=== PATIENT | male | born 1950 | race Asian ===

== ENCOUNTER 2023-09-27 06:36 | Day surgery (SDC) | payer BC, SELFPAY ==
[2023-09-27] VITALS (8 sets, daily range): BP systolic 110–140; BP diastolic 69–83; BMI 24.5
[2023-09-27] MEDS: LOW STRENGTH ASPIRIN 81 MG PO (07:12)
[2023-09-27] MEDS: NSS 200 ML IV (07:16)
--- NOTE | 2023-09-27 08:40 | ITS.CL.CATH ---
Documentation Specialist - Catheterization
Cardiac Catheterization
Procedure Report:
CARDIAC CATHETERIZATION REPORT
Date of Procedure: 09/27/2023
Referring: Demetrio Key DO
Indication: Anginal type chest discomfort with moderate to severe aortic stenosis by echocardiography
HEMODYNAMIC DATA
AO: 108/67
LV: 140/15
PCWP: 14
PA: 34/16
RV: 34/14
RA: 11
Oximetry: Ao 92%, PA 72%, cardiac output 4.8, cardiac index 2.8
Simultaneous left ventricular and aortic waveforms demonstrate moderate to severe aortic stenosis with mean gradient 28 mmHg and calculated YVON 0.9 cm�
LEFT VENTRICULOGRAPHY: Normal left-ventricular wall motion with EF 67%
CORONARY ANGIOGRAPHY
Dominance: Right
Left Main: Normal
LAD: 30% distal LAD stenosis and a highly angulated segment. The large bifurcating second diagonal branch has 30% ostial stenosis
Circumflex: The large ramus intermedius branch has focal 30% proximal to mid stenosis. There is a 30% mid circumflex stenosis
RCA: Dominant vessel with mild luminal irregularities
Closure Device: None-the procedure was performed via the right radial artery and right femoral vein. The Nahum's test was normal prior to the procedure.
Radiation (mGy): 196
DAP (cm2.Gy): 18.2
Fluoroscopy time: 4.9 minutes
CONCLUSIONS
1: Top normal filling pressures with no pulmonary hypertension
2: Moderate to severe aortic stenosis with mean gradient 28 mmHg and calculated YVON 0.9 cm�
3. Normal left ventricular function with EF 67%
4. Mild CAD
5. We will add metoprolol ER 25 mg daily as his major symptom is mild chest pressure with strenuous activity. Continue serial clinical and echocardiographic follow-up for progression of aortic stenosis and symptoms. If symptoms progress they may
be attributable to aortic stenosis and prompt a recommendation for TAVR
Copy to: Demetrio Key DO, Luis Kelly MD
Lul Vincent MD, [facility], [facility]
[2023-09-27] MEDS: NSS 1000 IV (09:04)
[2023-09-27] MEDS: TOPROL XL 25 MG PO (09:22)
== END 2023-09-27 11:30 | disposition home or self-care (01) ==
LOC: CATH 06:36
PROVIDERS: ATTENDING PHYSICIAN Internal Medicine Cardiovascular Disease; FAMILY PHYSICIAN Family Medicine; OTHER PHYSICIAN Internal Medicine Cardiovascular Disease
DX: I35.0 Nonrheumatic aortic (valve) stenosis (principal); I25.119 Atherosclerotic heart disease of native coronary artery with unspecified angina pectoris; Z79.82 Long term (current) use of aspirin; Z79.899 Other long term (current) drug therapy
CPT/HCPCS: 93460; C1894; Q9967

== ENCOUNTER → 2023-11-13 09:28 | Outpatient (REF) | payer BC, SELFPAY | LOC: RAD 09:28 | PROVIDERS: ATTENDING PHYSICIAN Nurse Practitioner Adult Health; FAMILY PHYSICIAN Family Medicine | DX: I35.0 Nonrheumatic aortic (valve) stenosis (principal) | CPT/HCPCS: 74174; 75572; Q9967 ==

== ENCOUNTER 2024-01-02 05:54 | Inpatient (IN) | payer BC, MEDICARE, SELFPAY ==
[2023-12-25 08:29] VITALS: BMI 23.9
[2023-12-25 08:58] LABS: % Basophils 0.5 % (0-2); % Eosinophils 2.6 % (0-6); % Immature Granulocytes 0.7 % (0-0.5); % Lymphocytes 32.3 % (20.5-51.1); % Neutrophils 53.9 % (42.2-75.2); Absolute Eosinophils 0.1 10^3/uL (0-0.7); Absolute Lymphocytes 1.4 10^3/uL (1.2-3.4); Absolute Monocytes 0.4 10^3/uL (0.1-0.6); Absolute Neutrophils 2.3 10^3/uL (1.4-6.5); Hematocrit 46.7 % (39.0-52.0); Hemoglobin 15.7 g/dL (13.0-18.0); Mean Corp Hgb Conc. 33.6 g/dL (33.0-37.0); Mean Corpuscular Hgb 30.7 pg (27.0-31.0); Mean Corpuscular Volume 91.2 fL (80.0-94.0); Mean Platelet Volume 10.5 fL (7.4-10.4); Nucleated Red Blood Cells % 0 % (-); Platelet Count 198 10^3/uL (130-400); Red Blood Cell Count 5.12 10^6/uL (4.70-6.10); Red Cell Dist. Width 12.6 % (11.5-14.5); White Blood Cell Count 4.3 10^3/uL (4.8-10.8)
[2023-12-25 09:02] LABS: Urine Albumin Negative (Neg - Trace); Urine Bilirubin Negative (Negative); Urine Character Clear (Clear); Urine Color Yellow; Urine Glucose Negative (Negative); Urine Ketone Negative (Negative); Urine Leukocyte Negative (Negative); Urine Nitrite Negative (Negative); Urine Occult Blood Negative (Negative); Urine Urobilinogen Negative (Neg - 1+)
[2023-12-25 09:34] LABS: Glycohemoglobin (HgbA1c) 5.7 % (4.0-5.6)
[2023-12-25 09:36] LABS: INR 0.96; PT 12.8 Sec (11.4-14.6)
[2023-12-25 09:37] LABS: APTT 36.1 Sec (23.4-35.0)
--- NOTE | 2023-12-25 10:24 | CM ---
CM met w/ patient during PATs for planned TAVR, 01/01.
Pt. resides in a private, [address] st. home w/ approx. 1 DINA w/ spouse.
Functionally, patient is indep. at baseline w/ ADLs, mobility without the use of any assisted device.
Pt. still works full-time, drives.
Pt. has PP and uses [facility].
Reviewed pre and post op routines.
Soap, shower instructions, TAVR booklet provided.
Discussed post op restrictions to include lifting and driving restrictions.
Discussed post op MD appointment, Cardiac Rehab and visit from [facility] Transitional Care RN, patient agreeable to this.
Plan for TAVR, 01/01.
Anticipated DC plan is for home w/ [facility] Transitional Care RN.
CM to follow.
[2023-12-25 11:10] LABS: NT-proBNP 87.9 pg/ml
[2023-12-25 11:15] LABS: ALT (SGPT) 40 U/L (0-50); AST (SGOT) 45 U/L (17-59); Albumin 4.6 g/dl (3.5-5.0); Alkaline Phosphatase 55 U/L (38-126); Blood Urea Nitrogen 16 mg/dl (9-20); Calcium 9.6 mg/dl (8.4-10.2); Carbon Dioxide 28 mmol/L (22-30); Chloride 101 mmol/L (98-107); Direct Bilirubin 0.3 mg/dl (0.0-0.4); Estimated Creatinine Clearance 62 ml/min; Glucose 91 mg/dl (70-99); Potassium 4.1 mmol/L (3.5-5.1); Sodium 139 mmol/L (135-145); Total Bilirubin 1.1 mg/dl (0.2-1.3); Total Protein 7.2 g/dl (6.3-8.2); eGFR > 60.00
--- NOTE | 2023-12-25 11:51 | HPS.HSE ---
Family Physician
-
Family Physician: Luis Kelly
Director Corporate Security: Shahid
Chief Complaint
-
Dyspnea on exertion
History of Present Illness
Mr. Khalil is a very pleasant 73-year-old gentleman with moderate to severe aortic stenosis and mild concurrent aortic regurgitation. His highest mean gradient was 28 mmHg calculated YVON of 0.9. His LVEF is hyperdynamic at 67%. His pressure half-time
is 634. His peak velocity is 3.6 m/s. Cardiac catheterization demonstrated only mild CAD.He reports progressive symptom occurring over the last 2 years and becoming lifestyle limiting. He has chest pressure and shortness of breath with any moderate
rate of ambulation and when climbing stairs. He also used to be a avid swimmer, but has had to limit this activity secondary to similar symptoms. He states that it requires approximately 10 minutes of rest for his symptoms to tony. He denies any
presyncope/syncope. He is still works as a chemist enzymes.
Reviewed the risks of TAVR with the patient including bleeding, stroke and PPM. Patient does have a right bundle branch block so may have a slightly higher risk of needing a PPM following his TAVR. Allowed for and answered questions. He is aware he
will receive a call next Sat. to confirm arrival time but for now will plan to arrive at 0530 to the [facility]. He will hold his fish oil starting today and will stay on his aspirin. He will take only his aspirin the morning of his procedure.
Medical History
Past Medical History
Past Medical History: Reports CAD (mild), HTN and Hypercholesterolemia
Past Surgical History: Reports Appendectomy
Social History
Tobacco: Non-smoker
Alcohol: None
Drug: None
Personal:
Living: With Family ()
Employment: Employed ([employer])
Family History
Family History: Not pertinent
Allergies / Home Medications
Allergies reflects when Allergies were last updated in [employer].
Home Medications with original date entered in [employer]
Allergy/Medication List:
NKDA
Medications:
Aspir-81 81 MG Tablet Delayed Release 1 tablet Orally Once a day
Ezetimibe-Simvastatin 10-20 MG Tablet 1 tablet Orally Once a day
Isosorbide Mononitrate ER 30 MG Tablet Extended Release 24 Hour 1 tablet in the morning Orally Once a day
Metoprolol Succinate ER 25 MG Tablet Extended Release 24 Hour 1 tablet Orally Once a day
Multivitamin(Multiple Vitamin) - Tablet 1 tablet Orally Once a day
[place] 3 1000 MG Capsule 1 capsule Orally Three times a day
Vitamin B12 1000 MCG Tablet Extended Release 1 tablet Orally Once a day, Notes: 5,000
Review of Systems
-
History Source: Patient
Constitutional: Denies Fever, Night Sweats or Chills
EENT: Reports No Symptoms
Respiratory: Denies Cough or Trouble Breathing
Cardiac: Reports Chest Pain ('thightness' when he walks briskly) and Other (SHEA); Denies Syncope
Abdomen/GI: Denies Abdominal Pain, Nausea, Vomiting or Diarrhea
: Reports No Symptoms
Musculoskeletal: Reports No Symptoms; Denies Edema
Skin: Reports No Symptoms
Neurological: Reports No Symptoms
Endocrine: Reports No Symptoms
Hematologic/Lymphatic: Reports No Symptoms
Psych: Reports No Symptoms
Physical Exam
Physical Exam
General: Well Developed, Well Nourished, No Apparent Distress and Comfortable
HEENT: NormoCephalic, Moist mucous membranes and PERRLA
Respiratory: Clear and Non Labored Respirations; No Wheezes, Rales, Rhonchi or Crackles
Cardiac: S1/S2, Regular Rhythm, Bradycardia and Murmur (Grade II/)
Breast: Deferred by me
GI: Soft, Non Tender, Non Distended and Normal Bowel Sounds
Rectal: Deferred by Provider
Genito-urinary: Deferred by me
Musculoskeletal: No Clubbing, No Cyanosis and No Edema
Skin: Warm and Dry
Neuro: AO x 3, No Motor Deficits and Nonfocal/grossly intact
Psych: Calm and Intact Judgment/Insight
Laboratory Results
-
12/25/23 08:40
12/25/23 08:40
Laboratory Results
PT 12.8 Sec (11.4-14.6) 12/25/23 08:40
INR 0.96 12/25/23 08:40
APTT 36.1 Sec (23.4-35.0) H 12/25/23 08:40
Total Bilirubin 1.1 mg/dl (0.2-1.3) 12/25/23 08:40
AST 45 U/L (17-59) 12/25/23 08:40
ALT 40 U/L (0-50) 12/25/23 08:40
Alkaline Phosphatase 55 U/L (38-126) 12/25/23 08:40
Data Reviewed
-
Diagnostic Radiology: Report Reviewed by me (chest x-ray- no active disease)
Medical Tests (Nuc Med, Echo, EKG etc): Report Reviewed by me (55bpm, R-BBB- notified EP physicians to be aware if patient would need PPM following TAVR)
Lab Data: Labs Reviewed by me
Impression/Plan
-
IMPRESSION:
Moderate to severe, lifestyle limiting aortic stenosis
PLAN: After discussion and review by the heart team at the SDM meeting, plan is to proceed with TF-TAVR. Continue aspirin daily. Cardiac rehab consult. Post op day #1/#30 echocardiogram.
[2024-01-02] VITALS (28 sets, daily range): BP systolic 102–146; BP diastolic 41–97; BMI 23.4
--- NOTE | 2024-01-02 06:22 | W.CVOR.SURPR ---
CVOR Surgeon Immed Pre Op
-
I have examined this patient prior to performance of the scheduled procedure.
The patient's condition is unchanged from the time of the dictated/written History and
Physical and the patient is able to undergo the scheduled procedure.
--- NOTE | 2024-01-02 06:25 | PTCARENOTE ---
Pt rec'd as new adm for TAVR. clipped and washed with CHG wipes. adm hx obtained and iv site placed. Pt in sinus rhythm
[2024-01-02 08:19] LABS: ACT-LR - POC 290 Seconds (116-155)
[2024-01-02 08:28] LABS: ACT-LR - POC 277 Seconds (116-155)
--- NOTE | 2024-01-02 08:58 | W.IMMPOSTOP ---
Surgical Immed Post Op Note
-
[id number]
STRUCTURAL HEART PROCEDURE NOTE: TAVR
Preoperative Dx:
Cnwtzqty-nn-nepbmi aortic stenosis
HTN/HLD
RBBB
Postoperative Dx:
Same
Acute on chronic combined systolic-diastolic CHF w/ elevated LVEDP @ 30mmHg
CHB requiring pacing
Procedures:
1) R RA access w/ tactile guidance, micropuncture technique, 6Fr sheath placement
2) Placement of pigtail catheter in NCC w/ limited aortography & confirmation of cusp-overlap view
3) L CFV access w/ tactile & fluoroscopic guidance, micropuncture technique, 6Fr sheath placement
4) Placement of temporary RV pacing wire under fluoroscopic guidance, threshold testing
5) R EMBEDDED ENGINEER access w/ tactile & fluoroscopic guidance, micropuncture technique, 6Fr sheath placement
6) Placement of perclose sutures x 2 into R EMBEDDED ENGINEER, 8Fr sheath placement
7) Serial dilation of R ileofemoral system w/ attempted placement of 14Fr COOK sheath
8) Repeat dilation of R ileofemoral system w/ 16Fr dilator w/ successful placement of 14Fr COOK sheath
9) Wire purchase across stenotic AV (AL-1, soft-tip straight, LVEDP assessment, J-wire, pigtail, lunderquist)
10) Fluoroscopic inspection of TAVR valve
11) Attempted placement of TAVR valve/in-line sheath w/ loss of wire purchase across stenotic AV
12) Replacement of 14Fr COOK sheath w/ repeat wire purchase across stenotic AV (AL-1, soft-tip straight, J-wire, pigtail, lunderquist)
13) Placement of TAVR valve/in-line sheath
14) R TF TAVR w/ placement of 29mm EVOLUT FX valve (recapture x 2)
15) Completion aortography
16) Completion TTE (no effusion, trace AI, mean gradient 3mmHg)
17) Position of R RA pigtail catheter into distal abdominal aorta
18) Removal of afdwi-mivmntwx-hhpnmt & in-line sheath w/ R EMBEDDED ENGINEER mgmt w/ perclose sutures x 2; manual pressure
19) Completion R ileofemoral angiography
20) Temporary pacing wire secured in-situ w/ repeat threshold testing of temporary pacing wire given CHB
21) Removal of R RA access w/ mgmt w/ radial band placement
Computer Operations Technician:
Dr. Hayden Vincent
Cardiac Surgeon:
Dr. Lalo Fernandes
Anesthesia:
MAC & local to B/L groins and R wrist
Complications:
New current CHB in setting of pre-existing RBBB - pacer dependent
EP notified intraprocedurally
Implants:
Perclose sutures x 2
Medtronic Evolut FX 29mm valve; SN: [id number]
Cath Data:
Start: 0738hrs, Deploy: 0833hrs, End: 0853hrs
FT: 13.2min, mGy: 427.37, DAP: 43.5818, Contrast: 118
Post-TTE: trace PVL, mean gradient 3mmHg
Condition:
Stable/guarded to recovery
--- NOTE | 2024-01-02 09:18 | ITS.CL.CATH ---
Theology Professor - Catheterization
Cardiac Catheterization
Procedure Report:
TRANSCATHETER AORTIC VALVE REPLACEMENT REPORT
Date: 01/02/2024
Referring physician: Demetrio Key DO
Operators: Lul Vincent MD, Lalo Fernandes MD
Procedure: Conscious sedation was provided by anesthesia. Using a micropuncture technique, a 6 [place] sheath was placed in the right radial artery. A pigtail catheter was advanced the noncoronary cusp and an appropriate cusp overlap angle was
obtained. 6F left femoral venous sheath was placed. A transvenous pacemaker was placed into the RV apex with excellent thresholds. Access was then obtained in the RFA using the micropuncture technique. Injection into the RFA sheath was performed
to confirm a common femoral artery puncture site. Heparin 3000 units was administered. At this point, two Perclose sutures were preset using the preclose technique. We then placed an 8 [place]ij[place] sheath. A 14 Fijian sheath was exchanged into the RFA
follow use of a 12 Fijian dilator .Heparin 3000 units was administered. The valve was crossed with an AL 1 diagnostic catheter and a straight wire. LVEDP was elevated at 30 A double curved Lunderquist wire was advanced into the LV apex over a
pigtail catheter. The 14 F sheath was removed and exchanged for a 29mm Medtronic Evolute pro valve with in-line sheath. The inline sheath did not want to advance more than several millimeters into the groin and we carefully removed it and put the
14 Fijian sheath back in. Wire position in the left ventricle was lost and we repeated the procedure to regain access to the LV apex. Following dilatation with 16 F and 18 Fijian dilators, the inline sheath passed without difficulty into the
aorta. The valve was carefully advanced around the aortic arch and across the valve. [place] positioning required recapture x 2 and on the third placement we achieved an ideal valve position., The valve was very slowly deployed with ventricular
pacing at 120-140 per minute. The result was evaluated with both aortography and echocardiography which demonstrated an excellent result. There was trivial aortic insufficiency and a mean gradient of 3 mmHg. The patient developed complete heart
block following valve deployment which was not a surprise given his pre-existing right bundle branch block (40% risk of needing PPM post TAVR). The valve deployment system was removed and hemostasis achieved with the 2 Perclose sutures with a
15-minute manual hold to ensure hemostasis. Angiography of the right iliofemoral system was accomplished and showed no evidence of significant dissection or perforation with good runoff below the femoral bifurcation. The right radial sheath was
removed and an R band placed. The temporary pacemaker was secured in position and thresholds were rechecked. He will likely require permanent pacemaker within the next 24 hours
Radiation
Dose (mGy): 427
DAP (cm2.Gy): 43.5
Fluoroscopy time: 13.2 minutes
Conclusion: Successful placement of 29mm CoreValve Evolute Pro using a right percutaneous transfemoral approach with no acute complications
Lul Vincent M.D.
Copy : Demetrio Key DO, Luis Kelly MD
--- NOTE | 2024-01-02 09:30 | PTCARENOTE ---
Patient arrived to [facility] recovery at 0920. CTPA at bedside to assess temporary pacer. Patient currently not dependent on pacer. Pacer setting adjusted and basline EKG done. HR [address] Vincent at bedside and Dr. Khan. Pacer rate turned
down to 40. MA 15.
--- NOTE | 2024-01-02 09:37 | W.PN.UPDATE ---
Update Note
Progress Note Update
Reviewed Mr. Khalil with the heart team in the preTAVR SDM and confirmed a 29mm Evolut via right transfemoral access. Mr. Khalil will resume aspirin post TAVR. LVEDP 30mmHg. #29mm Evolut (serial# [id number]) successfully deployed via right transfemoral
access. Post implant MG 3mmHg.
--- NOTE | 2024-01-02 11:56 | CM ---
Chart reviewed. Patient is in the OR today. Patient is independent of ADLS, lives with his in a 2 STH, 1 DINA, 0 DME. Plan is for the patient to return home. CM to follow
[2024-01-02] MEDS: ANCEF 10 IV (12:31)
[2024-01-02] MEDS: ANCEF IV (12:52)
[2024-01-02] MEDS: TOPROL XL PO (15:17)
[2024-01-02] MEDS: ANCEF 5 IV (16:27)
--- NOTE | 2024-01-02 16:55 | W.PN.UPDATE ---
Update Note
Progress Note Update
Remains SR 70s, no further pacing requirements. [place] femoral transvenous pacing wire removed per consensus of Drs. Fernandes/Sal (CPT# 85141). Venous sheath removed without difficulty and hemostasis achieved with manual pressure x 15 minutes.
Patient to remain on bedrest x 4 hours s/p sheath removal.
--- NOTE | 2024-01-02 18:26 | PTCARENOTE ---
Pt received post TAVR at 1100. Pt awake, alert and oriented but drowsy. Right groin site dry and intact. Left groin site dry and intact with temp pacer wire and sheath intact. Pt denies any pain or discomfort. Pt received in SR with no pacer
activity noted on the monitor. Pacer wire and sheath removed at [address] NURSE WOUND. Pt remains on room air, sat 98%. Bedrest to be maintained until 2039.
[2024-01-02] MEDS: IMDUR (EXTENDED RELEASE) 30 MG PO (21:19)
[2024-01-02] MEDS: B COMPLEX w/VITAMIN C 1 CAPLET PO (21:19)
[2024-01-02] MEDS: LIPITOR 10 MG PO (21:19)
[2024-01-02] MEDS: ZETIA 10 MG PO (21:19)
[2024-01-02] MEDS: VITAMIN B-12 5000 MCG PO (21:19)
[2024-01-02] MEDS: LOW STRENGTH ASPIRIN 81 MG PO (21:19)
[2024-01-02] MEDS: THERAGRAN 1 TABLET PO (21:19)
--- NOTE | 2024-01-02 22:36 | PTCARENOTE ---
AAOx3- plan of care discussed- pt bedrest till 2100- b/l groin sites CDI + pulses. neuro checks WNL. OOB without issues. SR on the monitor. at bedside.
[2024-01-03] VITALS (16 sets, daily range): BP systolic 108–137; BP diastolic 57–78; PULSE 72; O2SAT 98–99
[2024-01-03 05:44] LABS: Hematocrit 40.7 % (39.0-52.0); Hemoglobin 14.3 g/dL (13.0-18.0); Mean Corp Hgb Conc. 35.1 g/dL (33.0-37.0); Mean Corpuscular Hgb 31.1 pg (27.0-31.0); Mean Corpuscular Volume 88.5 fL (80.0-94.0); Mean Platelet Volume 10.9 fL (7.4-10.4); Platelet Count 161 10^3/uL (130-400); Red Cell Dist. Width 12.5 % (11.5-14.5); White Blood Cell Count 12.8 10^3/uL (4.8-10.8)
[2024-01-03 06:04] LABS: Blood Urea Nitrogen 17 mg/dl (9-20); Carbon Dioxide 25 mmol/L (22-30); Chloride 105 mmol/L (98-107); Estimated Creatinine Clearance 69 ml/min; Glucose 101 mg/dl (70-99); Potassium 4.1 mmol/L (3.5-5.1); Sodium 137 mmol/L (135-145); eGFR > 60.00
--- NOTE | 2024-01-03 06:40 | W.PN.CT ---
Addendum entered and electronically signed by Kim Aguilera PA-C 01/03/24 13:48:
Response to query:
Acute on chronic combined systolic-diastolic congestive heart failure is a valid diagnosis
Original Note:
Today's Communication / Plan
-
-pod #1
-no issues overnight
-transient CHB post TAVR, then regained NSR 60-70s overnight. No татьяна or pauses overnight
-chronic RBBB
-Echo today
-current meds (ASA, Lipitor, Zetia, Imdur). Holding Toprol
-encourage IS, OOB
Assessment / Plan
-
- Severe symptomatic - s/p R TF TAVR w/ placement of 29mm EVOLUT FX valve (recapture x 2) on 01/02/24, pod #1
- Acute postop CHB in setting of pre-existing RBBB - pacer dependent initially, then regained nsr 60s
- Post-TTE: trace PVL, mean gradient 3mmHg
- Pre-existing RBBB
- HTN/HLD
- Appendectomy
- Non-smoker
Discussed patient care with: Nursing and Care Team
Subjective
Procedure
- s/p R TF TAVR w/ placement of 29mm EVOLUT FX valve (recapture x 2) on 01/02/24
-
Date of Service: January 03, 2024
Objective Data
-
PT 12.8 Sec (11.4-14.6) 12/25/23 08:40
INR 0.96 12/25/23 08:40
APTT 36.1 Sec (23.4-35.0) H 12/25/23 08:40
Vital Signs
Vital Signs
Temp Pulse Resp BP Pulse Ox
97.9 F 72 20 127/59 98
01/02/24 22:39 01/02/24 22:21 01/02/24 22:39 01/02/24 22:21 01/02/24 22:39
CT Intake/Output/Weight
01/02/24 01/02/24 01/03/24
06:59 18:59 06:59
Intake Total 500 / 500
Output Total 200 / 200
Balance 300 / 300
SaO2: 98
Physical Exam
-
General: Awake and AOx3
Cardiovascular: Regular rate & rhythm, No Murmurs and No Rub
Respiratory: Clear
Incision: Other (groins are cdi, soft, nontender, no hematoma b/l)
Extremities: No Edema (2+ DPs b/l)
Data Reviewed
-
Lab Results: Results Reviewed
Medications: Active Meds Reviewed
Chest X-Ray: Report Reviewed and Image Reviewed
ECG: Report Reviewed and Image Reviewed
[2024-01-03 06:50] LABS: Hepatitis C Antibody Negative (Negative)
--- NOTE | 2024-01-03 08:16 | W.PN.ANS.POP ---
Anesthesia Post Operative
- Anesthesia Post Op Note
Vital Signs Stable-See Nursing Note: Yes
Airway Patent: Yes
Adequate Pain Control: Yes
Change in Mental Status: No
Current Postoperative Nausea & Vomiting: No
Anesthesia Complications: No
General Anesthetic Recall: No
Unplanned Admission: No
Post Op Hydration Adequate: Yes
- -
Pt awake, alert resting comfortably with no anesthesia related c/o at time of post op visit.
--- NOTE | 2024-01-03 09:48 | W.PN.CD ---
Today's Communication / Plan
-
Continue meds
OOB and ambulate
Impression / Plan
-
S: 73 yo with mod to severe now s/p TAVR 29 mm, HLD, and HTN who is recovering after TAVR. He had transient CHB in the PACU.
severe s/p TAVR
- TTE pending
- RBBB likley need monitor
- aspirin
HTN
- cont Imdur holding metoprolol
HLD
- cont zetia and lipitor
Subjective:
No new complaints feels well
Physical Exam
Vital Signs/Labs
Vital Signs
Temp Pulse Resp BP Pulse Ox
97.5 F 71 20 108/57 99
01/03/24 07:58 01/03/24 08:00 01/03/24 07:58 01/03/24 07:58 01/03/24 08:00
01/02/24 01/03/24 01/04/24
06:59 06:59 06:59
Actual Weight 140 lb 6.951 oz
01/03/24 05:03
01/03/24 05:03
PT 12.8 Sec (11.4-14.6) 12/25/23 08:40
INR 0.96 12/25/23 08:40
APTT 36.1 Sec (23.4-35.0) H 12/25/23 08:40
12/25/23
08:40
Buu-N-Woknkxhjrom Pept 87.9
Physical Exam
Constitutional: No acute distress
EENT: Anicteric
Cardiovascular: Rhythm & rate is regular and Pedal edema is absent
Respiratory: Respiratory effort normal and Lungs clear to auscul.
GI: Soft
Neuro/Psych: AO x 3
Data Reviewed
-
Date of Service: January 03, 2024
Medical Decision Making: Reviewed Test Results
EKG: Tracing Personally Visualized and interpreted (sr)
Echo: Report Reviewed by me
Labs: Labs Reviewed by me
--- NOTE | 2024-01-03 11:43 | CM ---
Chart reviewed. Patient is independent of ADLS, lives with his in a 2 STH, 1 DINA, 0 DME. Plan is for the patient to return home with CT Transitional RN. CM to follow
--- NOTE | 2024-01-03 12:38 | W.DCSUMMARY ---
Documented by User: Willow LeJAE 01/03/24 13:02
Discharge Summary
Discharge Data
Date of Admission: 01/02/24
Date of Discharge: 01/03/24
-
Pending Results: No
Hospital Course
Primary care physician:
Dr. Kelly
Outpatient public administration teacher:
Dr. Key
Inpatient consultants:
[facility]
Procedures:
1. Right transfemoral transcatheter aortic valve replacement with a #29 mm evolut valve
Primary Diagnosis:
1. Severe aortic stenosis
Secondary Diagnoses:
1. Postoperative complete heart block (resolved)
2. Hypertension
3. Hyperlipidemia
4. Chronic right bundle branch block
HPI: 73-year-old male seen in the office by Dr. Fernandes presented electively for a transcatheter aortic valve replacement on 01/02/2024.
Hospital course: Patient was electively admitted on 01/01 for a transcatheter aortic valve replacement with Dr. Fernandes. Immediately after valve deployment patient developed complete heart block, that resolved, and patient went to clinical laboratory scientist recovery.
B/l groins remain stable. He was sent to IVU for the remainder of their recovery. On 6/, POD #1, B/L groins remained stable. Repeat TTE showed a peak/mean gradient of 10/6. She was deemed stable for discharge.
Home medication changes:
None
Discharge Plan
-
Patient Disposition: Home (Routine Discharge)
Discharge Diagnosis/Procedures: TF-TAVR, Pacemaker implant
Condition: Good
Diet: Low Cholesterol and 2 Gram Sodium
Activity: No restrictions
Driving Restrictions: No driving for 1 week
Bathing Restrictions: OK to Shower
Others Tests: Please call to scheduled a 30 day follow up echocardiogram with Dr. Key
Other Services: Cardiac Rehab
Wound Care: Please do not apply lotions, creams or powders to groin areas. Monitor groins for increased pain, swelling, redness or drainage. Notify your doctor if any occur.
Specialty Instructions: Weigh Daily- Call MD for wt gain/loss 3 lbs overnight/5 lbs in 1 week
Stand Alone Forms: DC Inst - Implanted Device, DC Inst - TransFemoral (TAVR)
Referrals:
[facility]- [facility] [Provider Group] - in one week (You should have incision check appointment in 1 week to remove the Aqucel dressing, the transitional care nurses can do this for you.)
CT Transitional Care Nurse [Outside] (The Cardiothoracic Transitional Care Nurse will call you to set up a visit in 1-2 days. Please have them remove Aquacel dressing in 7-10 days)
[facility] Cardiac Re[facility] [Outside] - 02/12/24 2:00 pm
(Cardiac Rehab Orientation appointment is on 02/12/24 at 2:00PM
The Cardiac Rehab gym is located on the first floor of the [facility].)
Luis Kelly MD [Family Provider] -
Demetrio Key DO [Non-Admitting Privileges] - 01/20/24 3:40 pm
Prescriptions:
New
acetaminophen 325 mg Tablet
650 mg PO Q4HPRN PRN (Reason: BORGES, mild pain, or fever >101F) Qty: 0 0RF
Rx Instructions:
Please purchase [id number]
Continued
isosorbide mononitrate 30 mg Tablet Extended Release 24 Hr
30 mg PO HS
aspirin 81 mg Tablet,Chewable
81 mg PO HS
ezetimibe-simvastatin 10-20 mg Tablet
1 tab PO HS
omega 1-lwp-jho-fish oil [Fish Oil] 1,000 mg (120 mg-180 mg) Capsule
2 cap PO HS
multivitamin Tablet
1 tab PO HS
vitamin B complex Capsule
1 cap PO HS
cyanocobalamin (vitamin B-12) [Vitamin B-12] 5,000 mcg tablet
5,000 mcg PO HS
metoprolol succinate 25 mg tablet extended release 24 hr
25 mg PO DAILY Qty: 90 3RF
Care Plan Goals
Care Plan Goals:
Problem: Readiness for enhanced knowledge related to diagnosis and treatment plan
Goal: Understand your diagnosis and treatment plan needs, including medications if applicable.
Instructions: Know your diagnosis, underlying causes and treatment plan options, including medications if applicable. Consult with your health care team to learn about your diagnosis and treatment plan, including medications if applicable.
Discharge Date and Time
Print Language: BELARUSIAN

Documented by User: Kim Aguilera PA-C 01/04/24 13:38
Discharge Summary
Discharge Data
Date of Admission: 01/02/24
Date of Discharge: 01/04/24
Total time spent discharging patient (in min): 40
Hospital Course
Primary care physician:
Dr. Kelly
Outpatient public administration teacher:
Dr. Key
Inpatient consultants:
[facility] cardiology
Procedures:
1. Right transfemoral transcatheter aortic valve replacement with a #29 millimeter evolut valve
Primary Diagnosis:
1. Severe aortic stenosis
Secondary Diagnoses:
1. Postoperative complete heart block (resolved)
2. Hypertension
3. Hyperlipidemia
4. Chronic right bundle branch block
HPI: 73-year-old male seen in the office by Dr. Fernandes presented electively for a transcatheter aortic valve replacement on 01/02/2024.
Hospital course: Patient was electively admitted on 01/01 for a transcatheter aortic valve replacement with Dr. Fernandes. Immediately after valve deployment patient developed complete heart block, that resolved, and patient went to clinical laboratory scientist recovery.
Bilateral groins remain stable. He was sent to the interventional unit for the remainder of their recovery. On 6/7, post operative day #1, bilateral groins remained stable. Repeat transthoracic echocardiogram showed a peak/mean gradient of 10/6
with trace aortic insufficiency, trace mitral regurgitation, trace pulmonic regurgitation, and an ejection fraction of greater than 75%. Patient unfortunately continued to exhibit intermittent pauses, which progressed to symptomatic heart block.
Dual-chamber Medtronic permanent pacemaker implantation was inserted on postoperative day #[address] Gonzalo MD. On postoperative day #2 the patient had no issues overnight. Pacemaker pocket remain clean dry and intact, with no evidence of
hematoma.patient's case was discussed with attending physician as well as cardiology. He was deemed stable for discharge on aspirin only.
Home medication changes:
Please continue all home medications as previously prescribed.
Take Acetaminophen 650 mg Q4H PRN for pain, fever.
Discharge Plan
-
Patient Disposition: Home (Routine Discharge)
Discharge Diagnosis/Procedures: TF-TAVR, Pacemaker implant
Condition: Good
Diet: Low Cholesterol and 2 Gram Sodium
Activity: No restrictions
Driving Restrictions: No driving for 1 week
Bathing Restrictions: OK to Shower
Others Tests: Please call to scheduled a 30 day follow up echocardiogram with Dr. Key
Other Services: Cardiac Rehab
Wound Care: Please do not apply lotions, creams or powders to groin areas. Monitor groins for increased pain, swelling, redness or drainage. Notify your doctor if any occur.
Specialty Instructions: Weigh Daily- Call MD for wt gain/loss 3 lbs overnight/5 lbs in 1 week
Stand Alone Forms: DC Inst - Implanted Device, DC Inst - TransFemoral (TAVR)
Referrals:
[facility] [Provider Group] - in one week (You should have incision check appointment in 1 week to remove the Aqucel dressing, the transitional care nurses can do this for you.)
CT Transitional Care Nurse [Outside] (The Cardiothoracic Transitional Care Nurse will call you to set up a visit in 1-2 days. Please have them remove Aquacel dressing in 7-10 days)
[facility]. Cardiac Rehab [Outside] - 02/12/24 2:00 pm
(Cardiac Rehab Orientation appointment is on 02/12/24 at 2:00PM
The Cardiac Rehab gym is located on the first floor of the [facility].)
Luis Kelly MD [Family Provider] -
Demetrio Key DO [Non-Admitting Privileges] - 01/20/24 3:40 pm
Prescriptions:
New
acetaminophen 325 mg Tablet
650 mg PO Q4HPRN PRN (Reason: BORGES, mild pain, or fever >101F) Qty: 0 0RF
Rx Instructions:
Please purchase [id number]
Continued
isosorbide mononitrate 30 mg Tablet Extended Release 24 Hr
30 mg PO HS
aspirin 81 mg Tablet,Chewable
81 mg PO HS
ezetimibe-simvastatin 10-20 mg Tablet
1 tab PO HS
omega 2-lyq-chn-fish oil [Fish Oil] 1,000 mg (120 mg-180 mg) Capsule
2 cap PO HS
multivitamin Tablet
1 tab PO HS
vitamin B complex Capsule
1 cap PO HS
cyanocobalamin (vitamin B-12) [Vitamin B-12] 5,000 mcg tablet
5,000 mcg PO HS
metoprolol succinate 25 mg tablet extended release 24 hr
25 mg PO DAILY Qty: 90 3RF
Care Plan Goals
Care Plan Goals:
Problem: Readiness for enhanced knowledge related to diagnosis and treatment plan
Goal: Understand your diagnosis and treatment plan needs, including medications if applicable.
Instructions: Know your diagnosis, underlying causes and treatment plan options, including medications if applicable. Consult with your health care team to learn about your diagnosis and treatment plan, including medications if applicable.
Discharge Date and Time
Print Language: BELARUSIAN
--- NOTE | 2024-01-03 13:33 | PN.CDI ---
CDI
- -
CDI:
Physician Documentation Request
Admit Date: 01/02/24 05:54
Dear Doctor Dom,
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
H&P list past medical history : mild cad, htn and hypercholesterolemia.
Patient does not appear to be on any outpatient diuretics.
Patient does not appear to be given any diuretics thus far during hospitalization.
6/7 post TAVR echo concludes and EF of > 75%
Please indicate in your progress notes if you are in agreement that the above diagnosis is valid for this patient:
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
____ - Other
Use of terms such as suspected, likely, concern for, or probable are acceptable for a diagnosis that is being evaluated, monitored or treated as if it exists and can be coded in the inpatient setting, when documented at the time of discharge.
Thank you,
Yandy Hudson RN, BSN
CDI Specialist
tiger text
Please use your independent medical judgment in providing your response.
--- NOTE | 2024-01-03 15:20 | W.PN.UPDATE ---
Update Note
Progress Note Update
Patient set up with [employer] 14 day assembly worker to be applied at discharge. Reviewed how to apply, charge and return with patient. Allowed for and answered questions.
--- NOTE | 2024-01-03 17:46 | PTCARENOTE ---
Pt received with no c/o this am. Ambulating in the hallway, denies any sob. Pt had a 1 - 2 sec pause post pvc at approx 1230. Pt then started having more frequent episodes of same. CT HELICOPTER PILOT and Dr. Fernandes notified. At 1632 pt had a 5.78 sec pause and
was lightheaded and dizzy. Dr. Obregon notified. Pt taken to the floating labor gang supervisor for permanent pacer at approx 1730.
--- NOTE | 2024-01-03 17:49 | W.PN.UPDATE ---
Update Note
Progress Note Update
Notified by Melody Iraheta on 01/03/2024 at 1745 regarding complete heart block on monitor. Patient experienced symptomatic complete heart block with greater than 3-second pauses. Patient sinus rhythm with right bundle branch block no evidence of
TN prolongation. Patient recently underwent TAVR and no experiencing symptomatic complete heart block. Discussed with patient and family at bedside regarding urgent/emergent implantation of pacemaker due to complete heart block. We discussed
pacemaker indications and device implant in detail. For implant there is an approximate 1:1000 risk of [place]/stroke/ and a 1% risk of pneumothorax/tamponade/infection/bleeding. We also discussed post procedure implant restrictions including
positions to avoid with implant arm for first six weeks after implant as well as driving restrictions. I took time to answer all questions. Patient signed informed consent and plan for urgent/emergent permanent pacemaker plantation.
--- NOTE | 2024-01-03 19:29 | ITS.CL.PACE ---
[employer] - Pacemaker Implant
Pacemaker Implant
Procedure Report:
Primary Care Doctor: Luis Kelly MD
Primary Otr Company Driver: Demetrio Key
Procedure Date: 01/03/2024
Name of procedure:
1. Placement of a dual-chamber pacemaker
2. Subclavian venography
History:
1. Patient is a pleasant 73-year-old male with a past medical history of hypertension, hyperlipidemia, severe status post TAVR on 01/02/2024 with right bundle branch block and new transient complete heart block.
2. Please refer to H&P for complete history.
Indication:
Symptomatic complete heart block
Methods:
After informed consent was obtained, the patient was brought to the EP laboratory in a postabsorptive, nonsedated state. Peripheral IV access was established. Prophylactic antibiotics were administered prior to incision. Continuous ECG, blood
pressure, and pulse oximetry were initiated. Cardioversion patch electrodes were placed on the patient's chest and back. A grounding patch was applied to the skin. Sedation was administered.
In order to define the extrathoracic portion of the subclavian vein and exclude significant venous obstruction or anomalous anatomy, subclavian venography was performed prior to the procedure. Using the patient's left peripheral IV, contrast was
injected and images were recorded. The left subclavian vein and SVC were found to be widely patent.
The left chest was prepared and draped in a sterile fashion. A time-out was performed. Local anesthesia was injected in the subcutaneous tissue in the infraclavicular area. An incision was made medial to the deltopectoral groove. The subcutaneous
tissue was dissected the level of the prepectoral fascia. A subcutaneous pocket was created. Under fluoroscopic guidance and with the assistance of the images from the venogram, 2 separate venipunctures were made using micropuncture and modified
Seldinger technique. These were performed in the extrathoracic portion of the subclavian vein. Guidewires were passed and two peel-away sheaths were placed, and used to advance leads into the circulation.
Using fluoroscopic guidance, the leads were positioned. The RV lead was advanced to the RV/outflow tract. Ventricular ectopy was recorded. Images were taken in COSTELLO and ICELANDIC views to ensure appropriate lead placement. The lead tip was subsequently
positioned on the apical septum. Adequate sensing and pacing parameters were found, and no diaphragmatic stimulation was seen with high-output pacing.
Next, the right atrial lead was positioned in the right atrial appendage. Adequate sensing and pacing parameters were found, and no diaphragmatic stimulation was seen with high-output pacing. Both sheaths were split, and the leads were secured to
the fascia with Ethibond ties.
The pocket was flushed with antibiotic solution and hemostasis was assured. Surgiflo was applied. The generator was connected to the leads and placed inside the pocket. The wound was closed with 3 running layers of absorbable suture, and
steri-strips were applied. Dressing applied over steri-strips in standard fashion.
Following the procedure, the patient was taken to the recovery area in stable condition. A chest x-ray was obtained in the holding area.
Lead parameters and device programming:
- RA Lead (Medtronic, Model 5076, # [id number]): Sensing 1.2 mV, Pacing threshold 0.7 V at 0.4 ms, Imp 703 ohm
- RV Lead (Medtronic, Model 5076, # [id number]): Sensing 3.5 mV, Pacing threshold 0.5 V at 0.4 ms, Imp 570 ohm
- Device: Medtronic, Model W1 DR 01 pacemaker (# [id number]), programmed DDD, mode switch on, lower rate 50, upper tracking rate 130; paced AV interval 220 ms, sensed AV interval 200 ms, rate adaptive AV interval on
Conclusions:
1. Successful placement of a dual-chamber pacemaker
2. Subclavian venography
Recommendations:
1. Return to patient room
2. Routine chest x-ray post procedure
3. IV antibiotics while the patient is admitted.
4. OK to resume home medications as indicated
5. Pressure dressing to be removed in AM, aquacell to remain until wound check
6. Follow-up will be arranged in the office in 7-10 days post-discharge
Emeterio Sánchez DO
Clinical Cardiac Remote Recruiter
cc: Luis Kelly MD; Demetrio Key
--- NOTE | 2024-01-03 20:00 | PTCARENOTE ---
pt received to 2248 post pacemaker placement. pt v paced on monitor with pvc's and some nsr. pt with left arm immobilizer on. pacemaker site with aquacell and pressure dressing intact.no swelling or ecchymosis noted. pt denies pain or discomfort at
this time. hob up 45 degrees. pt repositioned for comfort. ekg done. will observe.
[2024-01-03] MEDS: VITAMIN B-12 5000 MCG PO (23:29)
[2024-01-03] MEDS: THERAGRAN 1 TABLET PO (23:31)
[2024-01-03] MEDS: B COMPLEX w/VITAMIN C 1 CAPLET PO (23:31)
[2024-01-03] MEDS: LOW STRENGTH ASPIRIN 81 MG PO (23:31)
[2024-01-03] MEDS: ZETIA 10 MG PO (23:31)
[2024-01-03] MEDS: LIPITOR 10 MG PO (23:31)
[2024-01-03] MEDS: IMDUR (EXTENDED RELEASE) 30 MG PO (23:32)
[2024-01-03] MEDS: ANCEF 5 IV (23:35)
--- NOTE | 2024-01-04 02:31 | W.PN.CT ---
Addendum entered and electronically signed by Lalo Fernandes MD 01/04/24 09:39:
I saw and examined the patient.
The PA's note was reviewed and I agree with the note.
Comment:
POD#2 s/p R TF TAVR
No issues post PPM yesterday
ECHO: P/M: 05/03, Trace AI, LVEF > 75%
Continue home medications
ASA only anticoagulation
D/C home today
Original Note:
Today's Communication / Plan
-
Plan:
-No major issues overnight. Neurologically and hemodynamically intact
-Underwent successful dual chamber PPM placement yesterday for postop CHB
-Pocket is C/D/I with pressure dressing applied. No signs of infection
-Cont. current meds ((ASA, Lipitor, Zetia, Imdur; resume Toprol XL)
-Repeat echo yesterday showed TAVR to be well seated with PG/MG of 10/6 mmHg, trace AI. EF > 75%
-Groin is C/D/I without significant hematoma
-OOB into chair/Ambulate
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
Assessment / Plan
-
- Severe symptomatic - s/p R TF TAVR w/ placement of 29mm EVOLUT FX valve (recapture x 2) on 01/02/24, pod #2
- Acute postop CHB in setting of pre-existing RBBB - pacer dependent initially, then regained nsr 60s
- Post-TTE: trace PVL, mean gradient 3mmHg
- Pre-existing RBBB
- HTN/HLD
- Appendectomy
- Non-smoker
-Acute postop CHB S/P Dual Chamber PPM placement, 01/03/24
Discussed patient care with: Cardiology, Nursing, Respiratory Therapy, Pharmacy and Care Team
Subjective
Procedure
- s/p R TF TAVR w/ placement of 29mm EVOLUT FX valve (recapture x 2) on 01/02/24
-
Date of Service: January 04, 2024
Pt c/o mild incisional pain, otherwise feels well
Objective Data
-
PT 12.8 Sec (11.4-14.6) 12/25/23 08:40
INR 0.96 12/25/23 08:40
APTT 36.1 Sec (23.4-35.0) H 12/25/23 08:40
Vital Signs
Vital Signs
Temp Pulse Resp BP Pulse Ox
99.1 F 70 20 125/78 95
01/03/24 23:35 01/04/24 00:00 01/03/24 23:35 01/03/24 22:23 01/04/24 01:09
SaO2: 95 (RA)
Physical Exam
-
General: Awake, Oriented and AOx3
Cardiovascular: Regular rate & rhythm (v-paced), No Murmurs, No Rub and No Gallop
Respiratory: Clear
Incision: Clean, Dry, Intact and Dressing Intact
Extremities: No Edema
Data Reviewed
-
Lab Results: Results Reviewed
Medications: Active Meds Reviewed
Chest X-Ray: Report Reviewed and Image Reviewed
ECG: Report Reviewed and Image Reviewed
[2024-01-04 04:57] VITALS: BP 124/68
[2024-01-04 05:24] LABS: Hematocrit 42.2 % (39.0-52.0); Hemoglobin 14.7 g/dL (13.0-18.0); Mean Corp Hgb Conc. 34.8 g/dL (33.0-37.0); Mean Corpuscular Hgb 30.8 pg (27.0-31.0); Mean Corpuscular Volume 88.5 fL (80.0-94.0); Mean Platelet Volume 10.7 fL (7.4-10.4); Platelet Count 129 10^3/uL (130-400); Red Blood Cell Count 4.77 10^6/uL (4.70-6.10); Red Cell Dist. Width 12.7 % (11.5-14.5); White Blood Cell Count 8.5 10^3/uL (4.8-10.8)
[2024-01-04 05:53] LABS: Blood Urea Nitrogen 16 mg/dl (9-20); Calcium 9.2 mg/dl (8.4-10.2); Carbon Dioxide 24 mmol/L (22-30); Chloride 104 mmol/L (98-107); Estimated Creatinine Clearance 69 ml/min; Glucose 103 mg/dl (70-99); Magnesium 2.2 mg/dl (1.6-2.3); Potassium 4.4 mmol/L (3.5-5.1); Sodium 136 mmol/L (135-145); eGFR > 60.00
[2024-01-04 06:00] VITALS: BMI 23.3
--- NOTE | 2024-01-04 06:09 | PTCARENOTE ---
pt states he feels good. denies pain or discomfort at pacemaker site. site intact left anterior chest with pressure dressing. pt vpaced/sr with pvc's and bbc. carelink express done this am. report received of no episodes overnight ,all in expected
range, functioning as programed.
[2024-01-04 07:16] VITALS: BP 110/68
--- NOTE | 2024-01-04 07:23 | W.PN.CD ---
Today's Communication / Plan
-
Resume metoprolol 25 mg daily.
Discharge.
Outpatient wound check for PPM and TAVR.
Impression / Plan
-
Impression/Plan: 73 yo with HLD, and HTN with moderate to severe admitted for elective TAVR, now complicated by complete heart block.
#Severe
-s/p #29 Alexandre LANDON S3 TAVR via right femoral approach.
-Transient heart block post procedure, subsequently resolved, then recurred.
-Access sites are C/D/I.
-Antithrombotic therapy with aspirin monotherapy.
-Echo shows stable valve function.
#Complete heart block
-Initially transient, but now recurrent.
-S/P PPM.
-Outpatient wound check.
#HTN
-Chronic, stable.
-Continue isosorbide mononitrate.
-Resume metoprolol.
#HLD
-Chronic, stable.
-Continue ezetimibe and atorvastatin.
#Dispo
-IVU status.
-Full code.
-Discharge planning.
Subjective/Interval History:
Patient had recurrence of complete heart block.
PPM placed yesterday.
DATA:
PPM placement, 01/03/2024:
Conclusions:
1. Successful placement of a dual-chamber pacemaker
2. Subclavian venography
- RA Lead (Medtronic, Model 5076, # [id number]): Sensing 1.2 mV, Pacing threshold 0.7 V at 0.4 ms, Imp 703 ohm
- RV Lead (Medtronic, Model 5076, # [id number]): Sensing 3.5 mV, Pacing threshold 0.5 V at 0.4 ms, Imp 570 ohm
- Device: Medtronic, Model W1 DR 01 pacemaker (# [id number]), programmed DDD, mode switch on, lower rate 50, upper tracking rate 130; paced AV interval 220 ms, sensed AV interval 200 ms, rate adaptive AV interval on
TTE, 01/03/2024:
CONCLUSIONS
LV ejection fraction is >75%, by visual assessment. No regional wall motion
abnormalities are seen.
Normal right ventricular size and function.
Status-post 29 mm Medtronic Evolut transcatheter aortic valve replacement;
peak/mean gradients are 10/6 mmHg. Trace aortic regurgitation.
Physical Exam
Vital Signs/Labs
Vital Signs
Temp Pulse Resp BP Pulse Ox
36.5 C 70 18 125/78 95
01/04/24 04:45 01/04/24 00:00 01/04/24 04:45 01/03/24 22:23 01/04/24 04:45
01/02/24 01/03/24 01/04/24
11:59 11:59 11:59
Actual Weight 63.7 kg 63.4 kg
01/04/24 05:04
01/04/24 05:04
PT 12.8 Sec (11.4-14.6) 12/25/23 08:40
INR 0.96 12/25/23 08:40
APTT 36.1 Sec (23.4-35.0) H 12/25/23 08:40
Magnesium 2.2 mg/dl (1.6-2.3) 01/04/24 05:04
12/25/23
08:40
Smu-Z-Vyqfhchrbwu Pept 87.9
Physical Exam
Constitutional: No acute distress and Comfortable
EENT: Anicteric and Moist mucous membranes
Cardiovascular: Rhythm & rate is regular, Pedal edema is absent, JVD pressure is normal, S1S2 is normal and Murmur/rub/gallop absent
Respiratory: Respiratory effort normal, Lungs clear to auscul., Wheeze Absent, Crackles Absent and Rhonchi Absent
GI: Soft, Distention absent, Flat, Non tender and Normal bowel sounds
Neuro/Psych: AO x 3
Other: Cath Site (Bilateral femoral access sites are C/D/I.) and Cardiac Device Site (Right pectoral PPM site is non-tender, under dressing.)
Data Reviewed
-
Date of Service: January 04, 2024
Medical Decision Making: Reviewed Test Results, Independent Historian Assessment, Test Interpretation and Review of Case with other Provider
EKG: Tracing Personally Visualized and interpreted and Report Reviewed by me
Echo: Tracing Personally Visualized and interpreted and Report Reviewed by me
X-Ray/CT/US/MRI/NUC/PET: Image Personally Visualized and interpreted and Report Reviewed by me
Medical Tests (PFT, Pathology etc): Image Personally Visualized and interpreted and Report Reviewed by me
Labs: Labs Reviewed by me
Old Records: Reviewed
[2024-01-04] MEDS: ANCEF 5 IV (07:51)
[2024-01-04] MEDS: TOPROL XL 25 MG PO (07:52)
[2024-01-04 12:24] VITALS: BP 126/52
== END 2024-01-04 14:30 | disposition home or self-care (01) | DRG 266 ==
LOC: IVU 05:54
PROVIDERS: Internal Medicine Cardiovascular Disease; Nurse Practitioner; Nurse Practitioner Adult Health; Thoracic Surgery (Cardiothoracic Vascular Surgery); ADMITTING PHYSICIAN Thoracic Surgery (Cardiothoracic Vascular Surgery); CONSULT PHYSICIAN Internal Medicine Cardiovascular Disease; FAMILY PHYSICIAN Family Medicine
PROC: 02RF38Z Replacement of Aortic Valve with Zooplastic Tissue, Percutaneous Approach (ICD-10-PCS; 2024-01-02)
PROC: 0JH606Z Insertion of Pacemaker, Dual Chamber into Chest Subcutaneous Tissue and Fascia, Open Approach (ICD-10-PCS; 2024-01-03)
PROC: 02H63JZ Insertion of Pacemaker Lead into Right Atrium, Percutaneous Approach (ICD-10-PCS; 2024-01-03)
PROC: 02HK3JZ Insertion of Pacemaker Lead into Right Ventricle, Percutaneous Approach (ICD-10-PCS; 2024-01-03)
DX: I35.2 Nonrheumatic aortic (valve) stenosis with insufficiency (principal); I50.43 Acute on chronic combined systolic (congestive) and diastolic (congestive) heart failure; I44.2 Atrioventricular block, complete; I97.190 Other postprocedural cardiac functional disturbances following cardiac surgery; I25.10 Atherosclerotic heart disease of native coronary artery without angina pectoris; E78.00 Pure hypercholesterolemia, unspecified; I11.0 Hypertensive heart disease with heart failure; Y83.2 Surgical operation with anastomosis, bypass or graft as the cause of abnormal reaction of the patient, or of later complication, without mention of misadventure at the time of the procedure; I45.10 Unspecified right bundle-branch block; Z79.82 Long term (current) use of aspirin; Z79.899 Other long term (current) drug therapy
CPT/HCPCS: 93308; 33208; 33361; 36415; 71045; 71046; 80048; 80053; 81003; 82248; 83036; 83735; 83880; 85025; 85027; 85347; 85610; 85730; 86803; 86850; 86900; 86901; 87070; 93005; 93306; 93321; 93325; C1760; C1769; C1785; C1892; C1894; C1898; Q9967

== ENCOUNTER 2024-02-12 16:18 | Outpatient (RCR) | payer BC, MEDICARE, SELFPAY | END 2024-02-12 23:59 | disposition home or self-care (01) | LOC: CRHB 16:18 | PROVIDERS: ATTENDING PHYSICIAN Internal Medicine Cardiovascular Disease | DX: Z95.4 Presence of other heart-valve replacement (principal) | CPT/HCPCS: 93798 ==